=== PATIENT | female | born 1985 | race American Indian/Alaskan Native ===

== ENCOUNTER 2017-11-02 00:03 | Inpatient (IN) | payer SELFPAY ==
[2017-11-02] MEDS ORDERED: ASPIRIN PO ONE (00:44)
[2017-11-02] MEDS ORDERED: CATAPRES PO ONE (00:45)
[2017-11-02 01:22] LABS: Basophils % (Auto) 0.4 % (0.0-1.8); Eosinophils # (Auto) 0.1 K/mm3 (0.0-0.4); Eosinophils % (Auto) 1.5 % (0.0-4.3); Hematocrit 28.6 % (30.3-42.9); Hemoglobin 8.5 gm/dl (10.1-14.3); Lymphocytes # (Auto) 2.6 K/mm3 (1.2-5.4); Lymphocytes % (Auto) 42.6 % (13.4-35.0); Mean Corpuscular HGB Conc 30 % (30-34); Mean Corpuscular Hemoglobin 21 pg (28-32); Mean Corpuscular Volume 71 fl (79-97); Monocytes # (Auto) 0.4 K/mm3 (0.0-0.8); Monocytes % (Auto) 6.8 % (0.0-7.3); Platelet Count 289 K/mm3 (140-440); Red Blood Count 4.05 M/mm3 (3.65-5.03)
[2017-11-02 01:33] LABS: BUN/Creatinine Ratio 20; Blood Urea Nitrogen 14 mg/dL (7-17); Calcium 8.8 mg/dL (8.4-10.2); Hemolysis Index 1
[2017-11-02] MEDS ORDERED: NITROSTAT SL PRN (02:30)
[2017-11-02] MEDS ORDERED: SUBLIMAZE IV ONE (02:30)
[2017-11-02] MEDS ORDERED: NACL 0.9% 500 ML 500 ML IV ONE (02:30)
--- NOTE | 2017-11-02 02:31 | Emergency Department Report ---
ED Chest Pain HPI - General Chief Complaint: Chest Pain Stated Complaint: CHEST PAIN Time Seen by Provider: 11/02/17 02:20 Source: patient, RN notes reviewed Mode of arrival: Ambulatory Limitations: No Limitations - History of Present Illness Initial Comments: His is a 32-year-old female. The patient is previously unknown to this provider. Her primary care doctor is Dr. Goetz. She has a past medical history of obesity and hypertension, noncompliant with antihypertensive therapy for quite a while. Presents to the ER with right-sided chest wall pain. To me she indicates the pain does not radiate to the back, arms and neck. There is no vomiting or diaphoresis. There are no pulmonary embolus or DVT risk factors. The pain increases with palpation and twisting her arm over the right side of her chest. No recent aspirin use, no recent cocaine use, does not have a family history of coronary artery disease or dissection that she is aware of. MD Complaint: chest pain -: Gradual, days(s) Onset: during rest Pain Location: right chest Pain Radiation: none Severity: moderate Severity scale (0 -10): 3 Quality: tightness, aching Consistency: intermittent Improves With: rest Worsens With: palpation re: denies: nausea, vomting, diaphoresis, dyspnea, sense of impending doom Treatments Prior to Arrival: none Aspirin use within the Past 7 Days: (0) No - Related Data On Oral Contraceptives: No Home Medications Medication Instructions Recorded Confirmed Last Taken No Known Home Medications [No 11/02/17 11/02/17 Unknown Reported Home Medications] Allergies Allergy/AdvReac Type Severity Reaction Status Date / Time No Known Allergies Allergy Unverified 11/02/17 00:44 Heart Score - HEART Score History: Slightly suspicious EKG: Non-specific Age: < 45 Risk factors: 1-2 risk factors Troponin: < normal limit HEART Score: 2 - Critical Actions Critical Actions: 0-3 pts:0.9-1.7%risk of adverse cardiac event.Candidate for discharge ED Review of Systems ROS: Stated complaint: CHEST PAIN Other details as noted in HPI Comment: All other systems reviewed and negative ED Past Medical Hx - Past Medical History Hx Hypertension: Yes - Surgical History Past Surgical History?: No - Social History Smoking Status: Never Smoker Substance Use Type: None - Medications Home Medications: Home Medications Medication Instructions Recorded Confirmed Last Taken Type No Known Home Medications [No 11/02/17 11/02/17 Unknown History Reported Home Medications] ED Physical Exam - General Limitations: No Limitations General appearance: alert, in no apparent distress, obese - Head Head exam: Present: atraumatic, normocephalic - Eye Eye exam: Present: normal appearance, EOMI. Absent: nystagmus - ENT ENT exam: Present: normal exam, normal orophraynx, mucous membranes moist, normal external ear exam - Neck Neck exam: Present: normal inspection - Respiratory Respiratory exam: Present: normal lung sounds bilaterally, chest wall tenderness , other (there is reproducible chest wall tenderness. The bilateral breast exam is unremarkable. During the breast examination, escorted by ER nurse Tanmay Novak). Absent: respiratory distress - Cardiovascular Cardiovascular Exam: Present: regular rate, normal rhythm. Absent: systolic murmur, diastolic murmur, rubs, gallop - GI/Abdominal GI/Abdominal exam: Present: soft, normal bowel sounds. Absent: distended, tenderness, guarding, rebound, rigid, pulsatile mass - Extremities Exam Extremities exam: Present: normal inspection, full ROM, normal capillary refill. Absent: pedal edema, joint swelling, calf tenderness - Back Exam Back exam: Present: normal inspection, full ROM. Absent: tenderness, CVA tenderness (R), paraspinal tenderness, vertebral tenderness - Neurological Exam Neurological exam: Present: alert, oriented X3, CN II-XII intact, normal gait, other (Extraocular movements intact. Tongue midline. No facial droop. Facial sensation intact to light touch in the V1, V2, V3 distribution bilaterally. 5 and 5 strength in 4 extremities.. Sensation is intact to light touch in 4 extremities.). Absent: motor sensory deficit - Psychiatric Psychiatric exam: Present: normal affect, normal mood - Skin Skin exam: Present: warm, dry, intact, normal color. Absent: rash ED Course Vital Signs 11/02/17 11/02/17 11/02/17 00:27 00:36 00:54 Temperature 99.4 F 99.4 F Pulse Rate 108 H 100 H 108 H Respiratory 20 18 Rate Blood Pressure 214/137 214/137 214/137 O2 Sat by Pulse 97 97 Oximetry 11/02/17 11/02/17 11/02/17 02:00 02:13 02:30 Temperature Pulse Rate 98 H 91 H Respiratory 16 18 20 Rate Blood Pressure 152/105 O2 Sat by Pulse 99 98 Oximetry 11/02/17 11/02/17 03:00 03:30 Temperature Pulse Rate 88 88 Respiratory 12 20 Rate Blood Pressure 153/105 139/98 O2 Sat by Pulse 99 96 Oximetry - Reevaluation(s) Reevaluation #1: 11/02/17 03:38 Differential diagnosis, including but not limited to: Costochondritis, hypertension secondary to medication noncompliance, acute coronary syndrome, pericarditis, myocarditis, aortic disease Assessment and plan: 32-year-old female, no pulmonary embolus or DVT risk factors, low risk by well's criteria with reproducible chest wall pain for 3 days, and incidental hypertension. Troponin negative 2, EKG nonspecific 1, given clonidine prior to my arrival, blood pressure now in the 160s, resting comfortable, CT scan of the chest is pending. Reevaluation #2: 11/02/17 04:51 CT scan of the chest is negative. Feeling improved. Blood pressure is improved. Repeat EKG has nonspecific abnormalities. Patient is not confident that she can follow-up as an outpatient with cardiology to get an outpatient risk stratification. Therefore, given hypertension, abnormal EKG, patient will be admitted for stress test and cardiac risk stratification. Dr. Ward accepted the patient to the medical service on behalf of Dr. Brenda Thao RAFAL score - Rafal Score Age > 65: (0) No Aspirin use within the Past 7 Days: (0) No 3 or more CAD Risk Factors: (0) No 2 or more Angina events in past 24 hrs: (0) No Known CAD with more than 50% Stenosis: (0) No Elevated Cardiac Markers: (0) No ST Deviation Greater than 0.5mm: (0) No RAFAL Score: 0 ED Medical Decision Making - Lab Data Result diagrams: 11/02/17 00:48 11/02/17 00:48 - EKG Data -: EKG Interpreted by Me Rate: tachycardia - EKG Data When compared to previous EKG there are: previous EKG unavailable 11/02/17 03:37 Sinus tachycardia, 106 bpm, borderline left axis deviation, nonspecific T-wave abnormality, abnormal EKG, not consistent w stemi - Radiology Data Radiology results: pending Critical care attestation.: If time is entered above; I have spent that time in minutes in the direct care of this critically ill patient, excluding procedure time. ED Disposition Clinical Impression: Chest pain, Elevated blood pressure reading, Abnormal EKG Disposition: 09 OP ADMIT IP TO THIS HOSP Is pt being admited?: Yes Condition: Good Instructions: Chest Pain (ED) Referrals: BENITO RUBY MD [Primary Care Provider] - 3-5 Days
[2017-11-02] MEDS ORDERED: NACL ONE (02:47)
--- NOTE | 2017-11-02 04:13 | Cat Scan Report ---
FINAL REPORT EXAM: CT ANGIO CHEST HISTORY: cp htn TECHNIQUE: CT imaging obtained through the chest in pulmonary angiographic phase following intravenous administration of contrast. Transaxial, Coronal and sagittal reformats with maximal intensity projections are provided. PRIORS: None. FINDINGS: Normal caliber main pulmonary artery. Well opacified pulmonary arterial tree. No pulmonary embolism. No pericardial effusion. Thoracic aorta is normal in course and caliber. No periaortic fluid or stranding. No pneumothorax, effusion or focal airspace disease. The central airways are patent. No bronchiectasis. Imaged portion of the upper abdomen is unremarkable. The superficial soft tissues are unremarkable. No acute bony abnormality or worrisome osseous lesions identified. IMPRESSION: No pulmonary embolism or other acute finding.
[2017-11-02] MEDS ORDERED: ZOFRAN ONE (04:52)
[2017-11-02] MEDS ORDERED: ZOFRAN IV ONE (05:01)
--- NOTE | 2017-11-02 06:35 | Event Note ---
Patient went AMA, adission cancelled
[2017-11-02] MEDS ORDERED: SODIUM CHLORIDE FLUSH SYRINGE 10 ML IV PRN (08:59)
--- NOTE | 2017-11-02 09:11 | History and Physical Report ---
History of Present Illness Date of examination: 11/02/17 Date of admission: 11/02/17 04:52 Chief complaint: Chest Pain History of present illness: Pt is a 32 y/o lady with h/o HTN who presented with reproducible chest pain - 3 day duration. Chest pain is dull in nature. Rdiating to the back. Aggrevatd by movemtn and relieved by rest. Denies any shortness of breath, or diaphoresis. Denies any orthopnea, PND, pedal edema, fever chills. EKG on admission showed nonspecific T-wave abnormality in the lateral leads. Initial set of cardiac enzymes were normal. Admission was requested. Past History Past Medical History: hypertension Past Surgical History: No surgical history Social history: denies: smoking, alcohol abuse, prescription drug abuse Family history: no significant family history Medications and Allergies Allergies Allergy/AdvReac Type Severity Reaction Status Date / Time No Known Allergies Allergy Unverified 11/02/17 00:44 Home Medications Medication Instructions Recorded Confirmed Last Taken Type No Known Home Medications [No 11/02/17 11/02/17 Unknown History Reported Home Medications] Active Meds: Active Medications Nitroglycerin (Nitrostat) 0.4 mg SL .Q5MIN PRN PRN Reason: Chest Pain Review of Systems Constitutional: no anorexia, no fatigue, no weakness Ears, nose, mouth and throat: no ear pain, no ear discharge, no tinnitis, no decreased hearing Cardiovascular: chest pain, palpitations, no orthopnea, no edema Respiratory: no cough, no cough with sputum, no excessive sputum, no hemoptysis Gastrointestinal: no abdominal pain, no nausea, no vomiting, no diarrhea Musculoskeletal: no neck stiffness, no neck pain, no shooting arm pain, no arm numbness/tingling Integumentary: no rash, no pruritis, no redness, no sores Neurological: no head injury, no transient paralysis, no paralysis, no weakness Psychiatric: no anxiety, no memory loss, no change in sleep habits, no sleep disturbances Endocrine: no cold intolerance, no heat intolerance, no polyphagia, no excessive thirst Hematologic/Lymphatic: no easy bruising, no easy bleeding Allergic/Immunologic: no urticaria, no allergic rhinitis Exam - Constitutional Vitals: Temp Pulse Resp BP Pulse Ox 99.4 F 75 18 148/98 98 11/02/17 00:36 11/02/17 07:30 11/02/17 08:30 11/02/17 08:30 11/02/17 08:30 General appearance: Present: no acute distress, well-nourished - EENT Eyes: Present: PERRL ENT: hearing intact - Neck Neck: Present: supple, normal ROM - Respiratory Respiratory effort: normal Respiratory: bilateral: CTA - Cardiovascular Heart Sounds: Present: S1 & S2. Absent: rub, click - Extremities Extremities: pulses symmetrical, No edema Peripheral Pulses: within normal limits - Abdominal General gastrointestinal: Present: soft, non-tender, non-distended, normal bowel sounds - Integumentary Integumentary: Present: clear, warm, dry - Musculoskeletal Musculoskeletal: gait normal, strength equal bilaterally - Psychiatric Psychiatric: appropriate mood/affect, intact judgment & insight - Neurologic Neurologic: CNII-XII intact, moves all extremities Results - Labs CBC & Chem 7: 11/02/17 09:33 11/02/17 09:33 Labs: Abnormal lab results 11/02/17 11/02/17 Range/Units 00:48 00:48 Hgb 8.5 L (10.1-14.3) gm/dl Hct 28.6 L (30.3-42.9) % MCV 71 L (79-97) fl MCH 21 L (28-32) pg RDW 19.0 H (13.2-15.2) % Lymph % (Auto) 42.6 H (13.4-35.0) % Glucose 133 H (65-100) mg/dL Assessment and Plan - CP likely costochondritis However risk factors include HTn and Obesity Commence pt on CP protocol Stress thallium D/c home if nl - HTN Optimize with lisinopril Add Amlodipine spironolactioone -Anemia ? etiology w/u - Goiter rer CTA Chesk TSH Out pt w/u - DVT prophylaxic with Lovenox and GI with Omeprazole
[2017-11-02] MEDS ORDERED: ULTRAM PO PRN (10:00)
[2017-11-02] MEDS ORDERED: ALDACTONE PO SCH ×2 (10:00)
[2017-11-02] MEDS ORDERED: NORVASC PO SCH ×2 (10:00→19:00)
[2017-11-02] MEDS ORDERED: ZESTRIL PO SCH (10:00)
[2017-11-02 11:19] LABS: BUN/Creatinine Ratio 24; Blood Urea Nitrogen 12 mg/dL (7-17); Chol/HDL Ratio 2.13 %; HDL Cholesterol 74 mg/dL (40-59); Hemolysis Index 3; LDL Cholesterol,Direct 86 mg/dL (50-130)
[2017-11-02 11:21] LABS: Hemoglobin 8.6 gm/dl (10.1-14.3); Red Blood Count 4.06 M/mm3 (3.65-5.03)
[2017-11-02 11:22] LABS: Basophils % (Auto) 0.7 % (0.0-1.8); Eosinophils # (Auto) 0.1 K/mm3 (0.0-0.4); Eosinophils % (Auto) 1.1 % (0.0-4.3); Hematocrit 28.6 % (30.3-42.9); Lymphocytes % (Auto) 40.7 % (13.4-35.0); Mean Corpuscular HGB Conc 30 % (30-34); Mean Corpuscular Hemoglobin 21 pg (28-32); Mean Corpuscular Volume 71 fl (79-97); Mean Platelet Volume 8.4 fl (6-12); Monocytes # (Auto) 0.4 K/mm3 (0.0-0.8); Monocytes % (Auto) 8.5 % (0.0-7.3); Platelet Count 250 K/mm3 (140-440); Red Cell Distribution Width 18.9 % (13.2-15.2)
[2017-11-02] MEDS ORDERED: LEXISCAN IV ONE ×2 (11:23→12:00)
--- NOTE | 2017-11-02 13:34 | Treadmill Report ---
NUCLEAR CARDIAC IMAGING REPORT INDICATION FOR PROCEDURE: Chest pain. Informed consent was obtained. Vasodilator stress was achieved with 0.4 mg of intravenous Lexiscan per protocol. Rest and post-stress nuclear cardiac imaging was performed with the intravenous administration of 10 and 28 mCi of technetium 99m Myoview respectively. Gated SPECT imaging demonstrates a post-stress left ventricular ejection fraction of 63% with normal wall motion. Myocardial perfusion imaging demonstrates no significant cavity change between stress and rest. No significant stress induced perfusion defects are seen. Nuclear cardiac imaging demonstrates grossly normal post-stress left ventricular systolic function with no significant evidence for myocardial ischemia or necrosis. JOB# [id number] BRYamila/NTS
--- NOTE | 2017-11-02 17:12 | Discharge Summary ---
Providers - Providers Date of Admission: 11/02/17 04:52 Date of discharge: 11/02/17 Attending physician: BENITO FRANCES 11/02/17 Consult to Cardiac Rehabilitation [CONS] Routine Reason For Exam: Phase I Primary care physician: BENITO RUBY Hospitalization Reason for admission: chest pain Condition: Good Pertinent studies: stress thallium Procedures: none Hospital course: Pt is a 32 y/o lady with h/o HTN who presented with reproducible chest pain - 3 day duration. Chest pain is dull in nature. Rdiating to the back. Aggrevatd by movemtn and relieved by rest. Denies any shortness of breath, or diaphoresis. Denies any orthopnea, PND, pedal edema, fever chills. EKG on admission showed nonspecific T-wave abnormality in the lateral leads. Initial set of cardiac enzymes were normal. Admission was requested. On admission, pt was commenced on oxygen, ASA, tramadol, Nitroglycerin. Stress thallium was done. Report was negative for any isthmic changes. CT chest showed goiter. CBC showed iron def. anemia. Pt admit to history of menorrhagia. Pt is therefore being discharged home on NSAID and to f/u with PCP for w/u anemia. discussed eat length with pt and her regard her disease condition and discharge planning Disposition: DC-01 TO HOME OR SELFCARE Time spent for discharge: 35 mins Core Measure Documentation - Palliative Care Palliative Care/ Comfort Measures: Not Applicable - Core Measures Any of the following diagnoses?: none Exam - Constitutional Vitals: Temp Pulse Resp BP Pulse Ox 97.9 F 89 20 167/117 100 11/02/17 12:28 11/02/17 13:10 11/02/17 12:28 11/02/17 13:10 11/02/17 12:28 General appearance: Present: no acute distress, well-nourished, obese - EENT Eyes: Present: PERRL - Neck Neck: Present: supple, normal ROM - Respiratory Respiratory effort: normal Respiratory: bilateral: CTA - Cardiovascular Heart Sounds: Present: S1 & S2. Absent: rub, click - Extremities Extremities: pulses symmetrical, No edema Peripheral Pulses: within normal limits - Abdominal General gastrointestinal: Present: soft, non-tender, non-distended, normal bowel sounds - Integumentary Integumentary: Present: clear, warm, dry - Musculoskeletal Musculoskeletal: gait normal, strength equal bilaterally - Psychiatric Psychiatric: appropriate mood/affect, intact judgment & insight - Neurologic Neurologic: CNII-XII intact, moves all extremities Plan Activity: advance as tolerated Weight Bearing Status: Weight Bear as Tolerated Diet: low salt Follow up with: CE GODINEZ MD [Staff Physician] - 3 Days BENITO RUBY MD [Primary Care Provider] - 7 Days Forms: AMA Form Prescriptions: amLODIPine [Norvasc] 5 mg PO QDAY #30 tablet AtorvaSTATin [Lipitor] 40 mg PO QHS #30 tablet Lisinopril [Zestril TAB] 20 mg PO QDAY #30 tablet Naproxen 500 mg PO BID #30 tablet Spironolactone [Aldactone] 100 mg PO QDAY #30 tablet
[2017-11-02] MEDS ORDERED: APRESOLINE PO ONE (21:59)
[2017-11-03 00:30] VITALS: BP 134/88
[2017-11-03] MEDS ORDERED: ECOTRIN PO SCH (10:00)
== END 2017-11-03 | disposition home or self-care (01) | DRG 313 ==
LOC: ED 00:03 → 4A 04:52
PROVIDERS: ADMIT Internal Medicine; ATTEND Internal Medicine
DX: R07.9 Chest pain, unspecified (principal); R94.31 Abnormal electrocardiogram [ECG] [EKG]; I10 Essential (primary) hypertension; D64.9 Anemia, unspecified; E04.9 Nontoxic goiter, unspecified
CPT/HCPCS: 36415; 71275; 78452; 80048; 80061; 84443; 84484; 84703; 85025; 93005; 93010; 93017; 96374; 96375; A9270-GY; A9502; J2405; J2785; J3010; J7040; Q9967